=== PATIENT | female | born 1945 | race American Indian/Alaskan Native ===

== ENCOUNTER 2020-02-03 12:56 | Outpatient (CLI) | payer MEDICARE, OTHER ==
--- NOTE | 2020-02-03 16:10 | Magnetic Resonance Report ---
BILATERAL BREAST MR WITHOUT AND WITH GADOLINIUM INDICATION: Breast cancer survivor status post right mastectomy. Newly diagnosed left breast cancer. COMPARISONS: Outside mammograms and ultrasounds from December and January 2020 TECHNIQUE: Axial 1.0 mm T1 without, axial high-resolution 2.0 mm T2 and axial 1.0 mm dynamic vibrant high-resolution postcontrast T1 fat saturation sequences on a 1.5 Yuly magnet. The examination was p erformed with an 8-channel dedicated [place] breast coil. Post-processing with CAD and subtraction was performed on an [employer] workstation. 19.0 cc of MultiHance was injected without incident for the c ontrast portion of the exam. Consent was obtained prior to the administration of the contrast. FINDINGS: RIGHT CHEST WALL: No mass or suspicious enhancement. LEFT BREAST: Minimal background parenchymal enhancement. An irregular enhancing mass in the upper out er quadrant approximately 10 cm from the nipple measures 10.5 x 8.0 x 4.4 mm. It demonstrates heterog eneous enhancement with mixed kinetics, rapid initial enhancement, 172% peak enhancement and 98% type I persistent waveform. No other mass or suspicious enhancement. No suspicious lymph nodes. IMPRESSION: A 10.5 mm known cancer in the upper outer quadrant and no additional suspicious lesion of the left breast. No suspicious lymph nodes. BI-RADS Category 6: Known Cancer A normal MRI does not exclude the presence of some forms of breast malignancy as literature reports s uggest that some forms of ductal carcinoma in situ or lobular carcinoma, particularly, may not be det ected on MRI. The sensitivity and specificity of MRI for cancers under 5 mm may be reduced. MRI does not replace the recommendation for annual conventional mammographic evaluation and should be used as an adjunct to mammography and physical examination as necessary. Signer Name: Polo Rosario MD Signed: 02/03/2020 4:05 PM Workstation Name: [id number]
== END 2020-02-03 12:57 | disposition home or self-care (01) ==
LOC: SPVIMAG 12:56
PROVIDERS: ATTEND Surgery
DX: C50.412 Malignant neoplasm of upper-outer quadrant of left female breast (principal); N63.21 Unspecified lump in the left breast, upper outer quadrant
CPT/HCPCS: A9577; C8908; 77049

== ENCOUNTER 2021-02-08 10:21 | Outpatient (CLI) | payer MEDICARE, OTHER ==
--- NOTE | 2021-02-08 11:09 | Mammography Report ---
DIGITAL DIAGNOSTIC MAMMOGRAM WITH CAD , 02/08/2021 CLINICAL INFORMATION / INDICATION: The patient has a personal history of left breast cancer recently treated with lumpectomy and radiation. She reports no new breast symptoms. She also has a history of right breast cancer treated with mastectomy. TECHNIQUE: Digital left mammographic imaging was performed. This examination was interpreted with the benefit of Computer-aided Detection analysis. COMPARISON: Left mammogram, 12/23/2019 from [facility] FINDINGS: Breast Density: There are scattered areas of fibroglandular density. No dominant mass, suspicious calcifications or architectural distortion in the left breast. There has been interval postsurgical change in the upper outer quadrant. IMPRESSION: No mammographic evidence of malignancy. Interval changes of lumpectomy and radiation. Follow up recommendation: Routine yearly BI-RADS Category 2: Benign. A "normal" or negative report should not discourage follow up or biopsy of a clinically significant f inding. A written summary of these findings will be mailed to the patient. The patient will be entered into a mammography reporting system which will generate a reminder letter for the patient's next appointmen t at the appropriate interval. According to the [employer], yearly mammograms are recommended starting at age 40 and continuing as long as a woman is in good health. Breast MRI is recommended for women with an miguel roximately 20-25% or greater lifetime risk of breast cancer, including women with a strong family his tory of breast or ovarian cancer and women who have been treated for Hodgkin's disease. Signer Name: Missy Jernigan MD Signed: 02/08/2021 11:04 AM Workstation Name: [id number]
== END 2021-02-08 10:22 | disposition home or self-care (01) ==
LOC: SPVWC 10:21
PROVIDERS: ATTEND Surgery
DX: R92.8 Other abnormal and inconclusive findings on diagnostic imaging of breast (principal); Z85.3 Personal history of malignant neoplasm of breast